=== PATIENT | female | born 1985 | race African-American/Black ===

== ENCOUNTER 2017-03-04 02:49 | Emergency (ER) | payer OTHER ==
--- NOTE | 2017-03-04 03:44 | PD ---
HPI Chief Complaint: ACT Time Seen by Provider: 03:40 Travel History International Travel<30 days: No Contact w/Intl Traveler<30days: No Traveled to known affect area: No History of Present Illness HPI 31-year-old black female presents to emergency department by EMS under act due to alcohol intoxication. The patient was found to be unable to care for herself. She is very unsteady on her feet. The patient was placed under act by PD to ensure patient's safety. Here in the ER the patient is unable to give any meaningful history due to her intoxication. She smells of EtOH. There is no evidence of trauma. PFS Past Medical History Medical History: Unable to Obtain Anemia: Yes Diminished Hearing: No Tetanus Vaccination: Unknown ?: Unknown : 0 Para: 0 Miscarriage: 0 : 0 Past Surgical History Surgical History: Unable to Obtain Social History Alcohol Use: Yes (MIX DRINKS, BEER) Tobacco Use: Yes (1-2 CIGARS/WEEK) Substance Use: No Allergies-Medications (Allergen,Severity, Reaction): Coded Allergies: Sulfa (Verified Allergy, Severe, HIVES, SOB, 10/23/14) Reported Meds & Prescriptions Reported Meds & Active Scripts Active Review of Systems ROS Limitations: Intoxication Physical Exam Narrative GENERAL: Well-nourished, well-developed patient. No evidence of trauma. Patient's speech is extremely slurred and incomprehensible. Smells of EtOH. SKIN: Warm and dry. HEAD: Normocephalic and atraumatic. EYES: No scleral icterus. No injection or drainage. ENT: No nasal drainage noted. Mucous membranes pink. Airway patent. NECK: Supple, trachea midline. Moves head freely without obvious discomfort. CARDIOVASCULAR: Regular rate and rhythm without murmurs, gallops, or rubs. RESPIRATORY: Breath sounds equal bilaterally. No accessory muscle use. GASTROINTESTINAL: Abdomen soft, non-tender, nondistended. EXTREMITIES: No cyanosis or edema. BACK: Nontender without obvious deformity. No CVA tenderness. NEURO: Patient is alert and oriented. no sensorimotor deficits. Ataxic. Slurred speech. PSYCH: No delusions. No auditory or visual hallucinations. MDM Medical Decision Making Medical Screen Exam Complete: Yes Emergency Medical Condition: Yes Medical Record Reviewed: Yes Differential Diagnosis Differential diagnoses: Alcohol intoxication, substance abuse, electrolyte abnormality, malingering Narrative Course The patient appears to be heavily intoxicated. I see no evidence of trauma. The patient will be allowed to sleep it off here in the ER. Once the patient is able to exhibit sobriety her [place] act will be lifted and she will be allowed to go home. This is alcohol intoxication, [place] act Diagnosis Primary Impression: Alcohol intoxication Qualified Code: F10.920 - Alcohol intoxication, uncomplicated Additional Impression: [place] act Additional Instructions: Rest. Increase fluids. Avoid alcohol. Avoid illegal substances. Follow-up with [facility] for detox. Do not operate a car or any heavy machinery under the influence of alcohol or drugs. Follow-up with a medical doctor this week. Return to the ER for emergencies Med/Other Pt SpecificInfo: No Meds Exist/No RX given Disposition: 01 DISCHARGE HOME Condition: Stable Chalo Paiz Mar 04, 2017 03:44
[2017-03-04 07:42] VITALS: BP 132/88; PULSE 102; RESP 18; O2SAT 98
== END 2017-03-04 09:08 | disposition home or self-care (01) ==
LOC: NEPD 02:49
DX: F10.120 Alcohol abuse with intoxication, uncomplicated (principal); F17.210 Nicotine dependence, cigarettes, uncomplicated
CPT/HCPCS: 99281